=== PATIENT | female | born 1970 | race Caucasian/White ===

== ENCOUNTER 2022-04-01 15:57 | Outpatient (CLI) | payer BC | END 2022-04-01 15:58 | disposition home or self-care (01) | LOC: CSHRAD 15:57 | PROVIDERS: ATTEND Internal Medicine Rheumatology | DX: M54.50 Low back pain, unspecified (principal); M43.16 Spondylolisthesis, lumbar region; M25.78 Osteophyte, vertebrae | CPT/HCPCS: 72110 ==